=== PATIENT | male | born 1940 | race Caucasian/White ===

== ENCOUNTER 2016-07-12 12:20 | Observation (INO) | payer OTHER ==
[~2016-07-12] VITALS: Ht 182.9 cm; Wt 113.0 kg
--- NOTE | 2016-07-12 13:29 | DIAGNOSTIC IMAGING REPORT ---
PROCEDURE: XR CHEST 2 VIEW INDICATION: FEVER TECHNIQUE: PA and lateral views. COMPARISON: None. FINDINGS: Left lower lobe infiltrate. Right upper lobe infiltrate. IMPRESSION: 1. Left lower lobe and right upper lobe infiltrates.
--- NOTE | 2016-07-12 14:12 | ED ORDER SUMMARY ---
..... Patient: MARIBEL OQUENDO OrderSheet [facility] VisitID: [id number] [address] [place] [address] 75y, M Registration Date/Time: 07/12/2016 ORDER SHEET Weight: 117.9 kg (stated) Allergies: None GENERAL ORDERS: Blood Culture (No) (N/A) Urgent (12:56 07/12/2016 Callie GRAVES) (Ack 13:01 Karlee) (13:22 SRoberts R.N.) Head Holder (Continuous) (12:56 07/12/2016 Callie GRAVES) (13:21 SRoberts R.N.) Chest 2V Urgent (12:56 07/12/2016 Callie GRAVES) (Ack 13:01 Karlee) (13:22 SRoberts R.N.) UA-Culture if indicated Urgent (12:57 07/12/2016 Callie GRAVES) (Ack 13:01 Karlee) (13:21 SRoberts R.N.) Cardiac Panel Stat (12:57 07/12/2016 Callie GRAVES) (Ack 13:01 Karlee) (13:21 SRoberts R.N.) BNP Urgent (12:57 07/12/2016 Callie GRAVES) (Ack 13:01 Karlee) (13:22 SRoberts R.N.) TSH Urgent (12:57 07/12/2016 Callie GRAVES) (Ack 13:01 Karlee) (13:22 SRoberts R.N.) Lactate, Serum Urgent (12:57 07/12/2016 Calile GRAVES) (Ack 13:01 Karlee) (16:42 SRoberts R.N.) PCT (Procalcitonin) Urgent (12:57 07/12/2016 Callie GRAVES) (Ack 13:01 Karlee) (16:42 SRoberts R.N.) Pulse oximeter (12:57 07/12/2016 Callie GRAVES) (13:21 SRoberts R.N.) Oxygen (2 L/min) (NC) (12:57 07/12/2016 Callie GRAVES) (13:21 SRgeots R.N.) EKG - ER Stat (14:11 07/12/2016 Callie GRAVES) (14:22 LTapper) MEDICATION ORDERS: Ibuprofen PO 800 mg (NOW) (14:07 07/12/2016 Callie GRAVES) (Ack 14:09 Jacinto R.N.) (14:20 Jacinto R.N.) IV FLUIDS: IV Saline Lock (12:45 07/12/2016 oberts R.N. per protocol) (12:46 SRoberts R.N.) IV NS : initial bolus 500 mL (1000 mL/hr), then 250 mL/hr for 4h (NOW); Routine (12:56 07/12/2016 Callie GRAVES) (Ack 14:09 Jacinto R.N.) (16:15 SRoberts R.N.) Levofloxacin IV 750 mg/150 mL (after urine collected. ) (Sched once for X1); Routine (Sched once for X1) (12:57 07/12/2016 Callie GRAVES) (Ack 14:09 Jacinto R.N.) (16:20 SRoberts R.N.) ORDER SHEET NOTES: [Electronically signed by Larissa Arora R.N. (17:09 07/12/2016)] [Electronically signed by Sudhir Ni MD (19:45 07/12/2016)] [Electronically locked/signed by Larissa Arora R.N. (17:09 07/12/2016)]
--- NOTE | 2016-07-12 14:12 | ED CLINICAL REPORT ---
Clinical Report - Physicians/Mid Levels [facility] [address] [place] [address] 07/12/2016 12:24 Patient: MARIBEL OQUENDO Time Seen: 12:46 Jul 12 2016. Arrived- By private vehicle. Historian- patient. CPT: ER phys charges level 5 plus (#[id number]). EKG interpretation (#[id number]). HISTORY OF PRESENT ILLNESS Chief Complaint: WEAKNESS. ( fever and chills.). Severity described as moderate at its maximum. When seen in the E.D., severity described as moderate. Modifying factors- relieved by nothing. Not worsened by anything. Described as feeling light-headed, faint and weak all over. This started just prior to arrival today and is still present. No nausea, vomiting or hearing loss. Similar symptoms previously: As bad. Diagnosis: (Pneumonia, UTI). Recent medical care: Not recently seen/assessed. REVIEW OF SYSTEMS No headache, double vision, fainting episodes, head injury or chest pain. No palpitations, black stools, bloody stools, sore throat or cough. No difficulty breathing, abdominal pain, diarrhea, difficulty with urination or skin rash. No enlarged lymph nodes. The patient has had fever, chills and weakness. He has had difficulty walking. All systems otherwise negative, except as recorded above. PAST HISTORY ( Hypertension. Back Pain. Pneumonia 5 times UTI once. ADDITIONAL SURGERIES: Hip Surgery.). Medications: Furosemide Oral. Metoprolol Tartrate Oral. Allergies: None. SOCIAL HISTORY Former smoker. History of drug use: marijuana. ADDITIONAL NOTES The nursing notes have been reviewed. PHYSICAL EXAM Vital Signs: 07/12/2016 12:29 BP: 168/78. HR: 89. RR: 21. O2 saturation: 94%. Temp: 102.8 F. Pain level now: 0/10. Appearance: Alert. Patient in mild distress. Eyes: Pupils equal, round and reactive to light. No nystagmus. Extraocular movements normal. ENT: Normal ENT inspection. TM's normal. Moist mucous membranes. Pharynx normal. Neck: Normal inspection. Neck supple. CVS: Normal heart rate and rhythm. Heart sounds normal. Pulses normal. Respiratory: No respiratory distress. Breath sounds normal. Abdomen: Soft and nontender. Back: Normal inspection. Skin: Skin warm. No rash. Diaphoresis. Extremities: Extremities exhibit normal ROM. No lower extremity edema. Neuro: Alert. Oriented X 3. Mood/affect normal. Speech normal. Cranial nerves normal (as tested). No cerebellar findings. No motor deficit. No sensory deficit. Reflexes normal. LABS, X-RAYS, AND EKG EKG: Normal sinus rhythm. Normal P waves. Normal NIA. Non-specific ST segment / T wave abnormalities. Prior EKG unavailable. The study has been interpreted contemporaneously. The study has been independently viewed by me. The EKG appears to be a good tracing. Chest X-ray: Infiltrate in the right upper lobe and left lower lobe. Consistent with pneumonia. Views: PA and lateral. Technique: good. The X-rays were independently viewed by me and interpreted by the radiologist. Laboratory Tests: UA-Culture if indicated: (KENA: 07/12/2016 13:05) ( [facility] 07/12/2016 13:48) Final results Test Result Flag Units (Reference) URINE COLOR YELLOW URINE APPEARANCE CLEAR URINE GLUCOSE NEGATIVE (NEGATIVE) URINE BILIRUBIN NEGATIVE (NEGATIVE) URINE KETONE NEGATIVE (NEGATIVE) URINE SPECIFIC GRAVITY 1.015 (1.010-1.030) URINE PH 5.5 (5.0-8.0) URINE PROTEIN NEGATIVE (NEGATIVE) URINE UROBILINOGEN 0.2 EU/dL (0.2-1.0) URINE NITRITE NEGATIVE (NEGATIVE) URINE BLOOD 1+ (NEGATIVE) URINE LEUK ESTERASE NEGATIVE (NEGATIVE) URINE RBC 0-1 rbc/hpf (0-1) URINE WBC RARE wbc/hpf (0-1) URINE EPITHELIAL CELLS RARE EPI/hpf (0-5) URINE BACTERIA NONE SEEN (NONE SEEN) URINE COMMENT CULT NOT INDICATED URINE CULTURES ARE SET-UP BASED ON THE FOLLOWING CRITERIA:POSITIVE NITRITEPOSITIVE LEUKOCYTE ESTERASEGREATER THAN 10 WHITE BLOOD CELLSMODERATE (2+) OR GREATER BACTERIA CBC w Diff: (KENA: 07/12/2016 12:45) ( [facility] 07/12/2016 13:13) Final results Test Result Flag Units (Reference) WHITE BLOOD COUNT 16.2 H K/uL (4.5-11.5) RED BLOOD COUNT 5.18 M/uL (4.50-5.90) HEMOGLOBIN 15.7 gm/dL (13.5-17.5) HEMATOCRIT 46.4 % (41.0-53.0) MEAN CELL VOLUME 90 fL (80-100) MEAN CORPUSCULAR HGB 30 pg (26-34) MEAN CORPUSCULAR HGB CONC 34 g/dL (31-37) RED CELL DISTRIBUTION WIDTH 13.2 % (11.6-14.8) PLATELET COUNT 196 K/uL (150-400) NEUTROPHIL % 90.5 H % (50-75) LYMPH % 4.6 L % (25-40) MONO % 3.8 % (3-14) EOSINOPHIL % 0.6 % (0-4) BASOPHIL % 0.5 % (0-2) BNP: (KENA: 07/12/2016 12:45) ( [facility] 07/12/2016 13:43) Final results Test Result Flag Units (Reference) B-TYPE NATRIURETIC PEPTIDE 138 H pg/ml (5-100) Lactate, Serum: (KENA: 07/12/2016 13:22) ( [facility] 07/12/2016 14:02) Final results Test Result Flag Units (Reference) LACTIC ACID 2.3 H mmol/L (0.4-2.0) CHEM 13 PANEL: (KENA: 07/12/2016 12:45) ( [facility] 07/12/2016 13:44) Final results Test Result Flag Units (Reference) GLUCOSE 140 H mg/dL (70-110) BUN 16 mg/dL (7-18) CREATININE 1.3 mg/dL (0.6-1.3) Estimated GFR 57.51 mL/min Estimated GFR- >60 mL/min Note: Persistent reduction over 3 months in eGFR<60 mL/min/1.73 m2 defines CKD. Patients with eGFR values>=60 mL/min/1.73 m2 may also have CKD if evidence ofpersistent proteinuria. Additional information may be foundat www.kidney.org. SODIUM 139 mmol/L (136-145) POTASSIUM 3.8 mmol/L (3.5-5.1) CHLORIDE 100 mmol/L (98-107) CARBON DIOXIDE 28 mmol/L (21-32) CALCIUM 9.1 mg/dL (8.5-10.1) TOTAL PROTEIN 8.6 H g/dL (6.4-8.2) ALBUMIN 4.2 g/dL (3.3-5.0) BILIRUBIN, TOTAL 1.1 H mg/dL (0.0-1.0) ALKALINE PHOSPHATASE 68 U/L (46-116) AST (SGOT) 82 H U/L (15-37) ALT (SGPT) 149 H U/L (12-78) CPK 89 U/L (24-260) MAGNESIUM 1.8 mg/dL (1.8-2.4) TROPONIN I <0.05 ng/mL (0.00-1.5) TROPONIN REFERENCE RANGE:<0.1 NEGATIVE0.1-1.5 INDETERMINANT>1.5 POSITIVE THYROID STIMULATING HORMONE 1.260 uIU/mL (0.30-3.74) . PROGRESS AND PROCEDURES Course of Care: BC IV NS Levaquin 750 mg IV Ibuprofen 800 mg po Patient is stable. Symptoms better. Discussed case with on-call health care provider, (Braxton). Reviewed test results. Agreed upon treatment plan. Health care provider will see patient in ED. Patient/family counseled. Old medical records ordered. Disposition orders written. Disposition: Admitted to Acute Care. CLINICAL IMPRESSION Bacterial bronchopneumonia. Vital signs recorded and reviewed; empiric antibiotics given in the ED. Acute generalized weakness. Increased lactic acid Elevated LFT's. (Electronically signed by Sudhir Ni MD 07/12/2016 19:45)
--- NOTE | 2016-07-12 14:12 | ED ORDER SUMMARY ---
..... Patient: MARIBEL OQUENDO OrderSheet [facility] VisitID: [id number] [address] [place] [address] 75y, M Registration Date/Time: 07/12/2016 ORDER SHEET Weight: 117.9 kg (stated) Allergies: None GENERAL ORDERS: Blood Culture (No) (N/A) Urgent (12:56 07/12/2016 Callie GRAVES) (Ack 13:01 Karlee) (13:22 SRoberts R.N.) Vocational Education Professional (Continuous) (12:56 07/12/2016 Callie GRAVES) (13:21 SRoberts R.N.) Chest 2V Urgent (12:56 07/12/2016 Callie GRAVES) (Ack 13:01 Karlee) (13:22 SRoberts R.N.) UA-Culture if indicated Urgent (12:57 07/12/2016 Callie GRAVES) (Ack 13:01 Karlee) (13:21 SRoberts R.N.) Cardiac Panel Stat (12:57 07/12/2016 Callie GRAVES) (Ack 13:01 Karlee) (13:21 SRoberts R.N.) BNP Urgent (12:57 07/12/2016 Callie GRAVES) (Ack 13:01 Karlee) (13:22 SRoberts R.N.) TSH Urgent (12:57 07/12/2016 Callie GRAVES) (Ack 13:01 Karlee) (13:22 SRoberts R.N.) Lactate, Serum Urgent (12:57 07/12/2016 Callie GRAVES) (Ack 13:01 Karlee) (16:42 SRoberts R.N.) PCT (Procalcitonin) Urgent (12:57 07/12/2016 Callie GRAVES) (Ack 13:01 Karlee) (16:42 SRoberts R.N.) Pulse oximeter (12:57 07/12/2016 Callie GRAVES) (13:21 SRoberts R.N.) Oxygen (2 L/min) (NC) (12:57 07/12/2016 Callie GRAVES) (13:21 SRgeots R.N.) EKG - ER Stat (14:11 07/12/2016 Callie GRAVES) (14:22 LTapper) MEDICATION ORDERS: Ibuprofen PO 800 mg (NOW) (14:07 07/12/2016 Callie GRAVES) (Ack 14:09 Jacinto R.N.) (14:20 Jacinto R.N.) IV FLUIDS: IV Saline Lock (12:45 07/12/2016 oberts R.N. per protocol) (12:46 SRoberts R.N.) IV NS : initial bolus 500 mL (1000 mL/hr), then 250 mL/hr for 4h (NOW); Routine (12:56 07/12/2016 Callie GRAVES) (Ack 14:09 Jacinto R.N.) (16:15 SRoberts R.N.) Levofloxacin IV 750 mg/150 mL (after urine collected. ) (Sched once for X1); Routine (Sched once for X1) (12:57 07/12/2016 Callie GRAVES) (Ack 14:09 Jacinto R.N.) (16:20 SRoberts R.N.) ORDER SHEET NOTES: [Electronically signed by Larissa Arora R.N. (17:09 07/12/2016)] [Electronically signed by Sudhir Ni MD (19:45 07/12/2016)] [Electronically locked/signed by Larissa Arora R.N. (17:09 07/12/2016)]
--- NOTE | 2016-07-12 14:12 | ED CLINICAL REPORT ---
Clinical Report - Physicians/Mid Levels [facility] [address] [place] [address] 07/12/2016 12:24 Patient: MARIBEL OQUENDO Time Seen: 12:46 Jul 12 2016. Arrived- By private vehicle. Historian- patient. CPT: ER phys charges level 5 plus (#[id number]). EKG interpretation (#[id number]). HISTORY OF PRESENT ILLNESS Chief Complaint: WEAKNESS. ( fever and chills.). Severity described as moderate at its maximum. When seen in the E.D., severity described as moderate. Modifying factors- relieved by nothing. Not worsened by anything. Described as feeling light-headed, faint and weak all over. This started just prior to arrival today and is still present. No nausea, vomiting or hearing loss. Similar symptoms previously: As bad. Diagnosis: (Pneumonia, UTI). Recent medical care: Not recently seen/assessed. REVIEW OF SYSTEMS No headache, double vision, fainting episodes, head injury or chest pain. No palpitations, black stools, bloody stools, sore throat or cough. No difficulty breathing, abdominal pain, diarrhea, difficulty with urination or skin rash. No enlarged lymph nodes. The patient has had fever, chills and weakness. He has had difficulty walking. All systems otherwise negative, except as recorded above. PAST HISTORY ( Hypertension. Back Pain. Pneumonia 5 times UTI once. ADDITIONAL SURGERIES: Hip Surgery.). Medications: Furosemide Oral. Metoprolol Tartrate Oral. Allergies: None. SOCIAL HISTORY Former smoker. History of drug use: marijuana. ADDITIONAL NOTES The nursing notes have been reviewed. PHYSICAL EXAM Vital Signs: 07/12/2016 12:29 BP: 168/78. HR: 89. RR: 21. O2 saturation: 94%. Temp: 102.8 F. Pain level now: 0/10. Appearance: Alert. Patient in mild distress. Eyes: Pupils equal, round and reactive to light. No nystagmus. Extraocular movements normal. ENT: Normal ENT inspection. TM's normal. Moist mucous membranes. Pharynx normal. Neck: Normal inspection. Neck supple. CVS: Normal heart rate and rhythm. Heart sounds normal. Pulses normal. Respiratory: No respiratory distress. Breath sounds normal. Abdomen: Soft and nontender. Back: Normal inspection. Skin: Skin warm. No rash. Diaphoresis. Extremities: Extremities exhibit normal ROM. No lower extremity edema. Neuro: Alert. Oriented X 3. Mood/affect normal. Speech normal. Cranial nerves normal (as tested). No cerebellar findings. No motor deficit. No sensory deficit. Reflexes normal. LABS, X-RAYS, AND EKG EKG: Normal sinus rhythm. Normal P waves. Normal NIA. Non-specific ST segment / T wave abnormalities. Prior EKG unavailable. The study has been interpreted contemporaneously. The study has been independently viewed by me. The EKG appears to be a good tracing. Chest X-ray: Infiltrate in the right upper lobe and left lower lobe. Consistent with pneumonia. Views: PA and lateral. Technique: good. The X-rays were independently viewed by me and interpreted by the radiologist. Laboratory Tests: UA-Culture if indicated: (KENA: 07/12/2016 13:05) ( [facility] 07/12/2016 13:48) Final results Test Result Flag Units (Reference) URINE COLOR YELLOW URINE APPEARANCE CLEAR URINE GLUCOSE NEGATIVE (NEGATIVE) URINE BILIRUBIN NEGATIVE (NEGATIVE) URINE KETONE NEGATIVE (NEGATIVE) URINE SPECIFIC GRAVITY 1.015 (1.010-1.030) URINE PH 5.5 (5.0-8.0) URINE PROTEIN NEGATIVE (NEGATIVE) URINE UROBILINOGEN 0.2 EU/dL (0.2-1.0) URINE NITRITE NEGATIVE (NEGATIVE) URINE BLOOD 1+ (NEGATIVE) URINE LEUK ESTERASE NEGATIVE (NEGATIVE) URINE RBC 0-1 rbc/hpf (0-1) URINE WBC RARE wbc/hpf (0-1) URINE EPITHELIAL CELLS RARE EPI/hpf (0-5) URINE BACTERIA NONE SEEN (NONE SEEN) URINE COMMENT CULT NOT INDICATED URINE CULTURES ARE SET-UP BASED ON THE FOLLOWING CRITERIA:POSITIVE NITRITEPOSITIVE LEUKOCYTE ESTERASEGREATER THAN 10 WHITE BLOOD CELLSMODERATE (2+) OR GREATER BACTERIA CBC w Diff: (KENA: 07/12/2016 12:45) ( [facility] 07/12/2016 13:13) Final results Test Result Flag Units (Reference) WHITE BLOOD COUNT 16.2 H K/uL (4.5-11.5) RED BLOOD COUNT 5.18 M/uL (4.50-5.90) HEMOGLOBIN 15.7 gm/dL (13.5-17.5) HEMATOCRIT 46.4 % (41.0-53.0) MEAN CELL VOLUME 90 fL (80-100) MEAN CORPUSCULAR HGB 30 pg (26-34) MEAN CORPUSCULAR HGB CONC 34 g/dL (31-37) RED CELL DISTRIBUTION WIDTH 13.2 % (11.6-14.8) PLATELET COUNT 196 K/uL (150-400) NEUTROPHIL % 90.5 H % (50-75) LYMPH % 4.6 L % (25-40) MONO % 3.8 % (3-14) EOSINOPHIL % 0.6 % (0-4) BASOPHIL % 0.5 % (0-2) BNP: (KENA: 07/12/2016 12:45) ( [facility] 07/12/2016 13:43) Final results Test Result Flag Units (Reference) B-TYPE NATRIURETIC PEPTIDE 138 H pg/ml (5-100) Lactate, Serum: (KENA: 07/12/2016 13:22) ( [facility] 07/12/2016 14:02) Final results Test Result Flag Units (Reference) LACTIC ACID 2.3 H mmol/L (0.4-2.0) CHEM 13 PANEL: (KENA: 07/12/2016 12:45) ( [facility] 07/12/2016 13:44) Final results Test Result Flag Units (Reference) GLUCOSE 140 H mg/dL (70-110) BUN 16 mg/dL (7-18) CREATININE 1.3 mg/dL (0.6-1.3) Estimated GFR 57.51 mL/min Estimated GFR- >60 mL/min Note: Persistent reduction over 3 months in eGFR<60 mL/min/1.73 m2 defines CKD. Patients with eGFR values>=60 mL/min/1.73 m2 may also have CKD if evidence ofpersistent proteinuria. Additional information may be foundat www.kidney.org. SODIUM 139 mmol/L (136-145) POTASSIUM 3.8 mmol/L (3.5-5.1) CHLORIDE 100 mmol/L (98-107) CARBON DIOXIDE 28 mmol/L (21-32) CALCIUM 9.1 mg/dL (8.5-10.1) TOTAL PROTEIN 8.6 H g/dL (6.4-8.2) ALBUMIN 4.2 g/dL (3.3-5.0) BILIRUBIN, TOTAL 1.1 H mg/dL (0.0-1.0) ALKALINE PHOSPHATASE 68 U/L (46-116) AST (SGOT) 82 H U/L (15-37) ALT (SGPT) 149 H U/L (12-78) CPK 89 U/L (24-260) MAGNESIUM 1.8 mg/dL (1.8-2.4) TROPONIN I <0.05 ng/mL (0.00-1.5) TROPONIN REFERENCE RANGE:<0.1 NEGATIVE0.1-1.5 INDETERMINANT>1.5 POSITIVE THYROID STIMULATING HORMONE 1.260 uIU/mL (0.30-3.74) . PROGRESS AND PROCEDURES Course of Care: BC IV NS Levaquin 750 mg IV Ibuprofen 800 mg po Patient is stable. Symptoms better. Discussed case with on-call health care provider, (Braxton). Reviewed test results. Agreed upon treatment plan. Health care provider will see patient in ED. Patient/family counseled. Old medical records ordered. Disposition orders written. Disposition: Admitted to Acute Care. CLINICAL IMPRESSION Bacterial bronchopneumonia. Vital signs recorded and reviewed; empiric antibiotics given in the ED. Acute generalized weakness. Increased lactic acid Elevated LFT's. (Electronically signed by Sudhir Ni MD 07/12/2016 19:45)
--- NOTE | 2016-07-12 14:12 | ED NURSING NOTES ---
Clinical Report - Nurses [facility] [address] [place] [address] 07/12/2016 12:24 Patient: MARIBEL OQUENDO TRIAGE Triage time 12:30 Jul 12 2016. Acuity: LEVEL 2. Chief Complaint: CHILLS, FATIGUE and WEAKNESS. SEPSIS SCREEN: Sepsis Screen: positive. Infection suspected/documented. Temperature greater than 38.3 degrees C (101 degrees F) and respiratory rate greater than 20. Physician notified. --12:44 Larissa Arora R.N. 12:29 07/12/16. BP: 168/78. HR: 89. RR: 21 (regular and unlabored). O2 saturation: 94%. Temp: 102.8 F. Pain level now: 0/10. Additional comments: pt denies pain r/t visit, does report chronic low left back pain. --12:44 Larissa Arora R.N. Weight: 117.9 kg stated. Height/Length: 72 inches Per Patient. BMI: 35.3. --17:08 Larissa Arora R.N. Medications Furosemide Oral. Metoprolol Tartrate Oral. --12:34 Larissa Arora R.N. Allergies None. --12:34 Larissa Arora R.N. History Arrived by private vehicle. Historian: patient and family. Accompanied by family and son. This started just prior to arrival. Onset. 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 He has had fever and weakness. PAST MEDICAL HX: Immunizations: up-to-date. SURGERY HX: Right hip surgery. SOCIAL HX: Former smoker, end date 02/2015 (cigarette). Occasional alcohol use; consumes one beer a week. History of drug use. (recently used cbd oil for pain). NUTRITIONAL RISK ASSESSMENT: The nutritional risk assessment revealed no deficiencies. FUNCTIONAL ASSESSMENT: Functional assessment: no impairments noted. LEARNING NEEDS ASSESSMENT: The learning needs assessment revealed no barriers. SKIN INTEGRITY ASSESSMENT: Skin integrity risk assessment completed. No skin integrity risk identified. --12:44 Larissa Arora R.N. FALL RISK ASSESSMENT: Fall risk assessment completed. Risk factors identified include patient age greater than 65 years, history of fall and impairment of mobility. Fall interventions initiated. Patient placed in wheelchair. Side rails up x2. Brakes on Bed in low position. Patient identified as a fall risk by ID band. Family at bedside. Call light in reach of patient. Instructed not to get up without assistance. --12:48 Larissa Arora R.N. PROBLEMS: Hypertension. --12:35 Larissa Arora R.N. Back Pain. --12:44 Larissa Arora R.N. ADDITIONAL SURGERIES: Hip Surgery. --12:35 Larissa Arora R.N. Interventions ID and allergy band on patient. ID band checked. SEPSIS protocol initiated at triage. To treatment room. --12:44 Larissa Arora R.N. PHYSICAL ASSESSMENT GENERAL / NEURO / PSYCH: Alert. Oriented X 4. Appears anxious. He has had weakness. HEENT: Pupils equal, round and reactive to light. RESPIRATORY: Respirations not labored. The patient can speak in full sentences. GI / : Abdomen soft. SKIN: Skin intact. Skin is warm. Normal skin turgor. ( oral mucosa dry). --12:51 Larissa Arora R.N. NURSING PROGRESS NOTES 12:41 07/12/2016 Site #1 started via IV in the left antecubital space with an 20g angiocath; one attempt. Blood drawn: rainbow set and cultures x1. Sent to the lab. Saline lock flushed. --12:46 Larissa Arora R.N. 12:51. Oxygen administered. Monitoring of patient in place. Patient gowned. Head of bed elevated. Two patient identifiers checked. Call light placed in reach. Side rails up x 2. Bed placed in lowest position. Brakes of bed on. Patient ready for evaluation- chart flagged. --13:42 Larissa Arora R.N. Patient returned from radiology by stretcher with tech. ([id number]). --13:43 Larissa Arora R.N. 14:20 07/12/2016 Ibuprofen PO Tablets 800 mg given. Allergies verified and confirmed 5 rights. --14:20 Betsy Moya R.N. 14:24 03/16/17. Cardiac rhythm: normal sinus rhythm. Reassessment after fluids administered. He reports no complaints and he is calm and resting quietly. Overall patient status is the same. ( pt reported needing to void, unable to stand, provided urinal at bedside, pt diaphoretic, temp has dec since ivf up, pt in SR, no ectopy noted, family at bedside, call light in hand. pt took oral meds without difficulty,.). SKIN: Skin is diaphoretic. --14:24 Betsy Moya R.N. 14:20 07/12/16. BP: 144/81. HR: 83. RR: 17. O2 saturation: 94%. Temp: 98.4 F. Pain level now: 0/10. ED physician notified. --14:24 Betsy Moya R.N. EKG was performed by a tech and shown to the ED physician. --14:31 Delmis Lynch ( At patient's bedside, brought him water and a pillow as per patient's request and Shanti vickers.). --15:42 Delmis Lynch 13:01 07/12/2016 Started 750 mg of Levofloxacin IVPB in bag #1 150 mL; at 100 mL/hr over 90 minute(s) via site #1 via IV pump. Allergies verified and confirmed 5 rights. IV patency established. IV site checked: no pain, redness, or swelling. IV flushed thoroughly pre- and post-medication administration. --16:20 Larissa Arora R.N. 13:03 07/12/2016 Started bag #1 1000 mL IV Fluids IV NS (Saline); bolus of 500 mL over 30 minute(s) then at 1000 mL/hr over 30 minute(s) via site #1 via IV pump. Allergies verified and confirmed 5 rights. IV patency established. IV site checked: no pain, redness, or swelling. IV flushed thoroughly pre- and post-medication administration. --16:15 Larissa Arora R.N. 13:30 07/12/2016 IV Fluids IV NS via IV site #1 Rate Changed: bag #1 decreased to 250 mL/hr via IV pump. Confirmed 5 Rights. --16:16 Larissa Arora R.N. 14:30 07/12/2016 Levofloxacin IVPB Discontinued: bag #1 infused. Total amount infused: 150 mL. IV patency established. IV site checked: no pain, redness, or swelling. IV flushed thoroughly. --16:21 Larissa Arora R.N. 15:16 07/12/2016 IV Fluids IV NS Bag Change: bag #1 infused. Total amount infused: 1000. STARTED bag #2 (250 mL) at 250 mL/hr via IV pump. Confirmed 5 rights. --16:18 Larissa Arora R.N. 16:42 07/12/2016 IV Fluids IV NS Continued: upon admission at the rate of 250 mL/hr. 700 mL remaining bag #2. IV patency established. IV site checked: no pain, redness, or swelling. IV flushed thoroughly. --16:42 Larissa Arora R.N. 16:43 07/12/2016 Site #[address] upon admission; patent, no pain and no signs of infection or infiltration. Good blood return present; flushes easily. --16:43 Larissa Arora R.N. DISPOSITION / DISCHARGE Disposition: observation in Acute Care. Transported via stretcher by [employer] with IV. Report was given to a nurse via a phone call. Report included patient's care, treatment, medications, reviewed medication reconcilliation, and condition (including any recent changes or anticipated changes). All questions were answered. Report was acknowledged and care was transferred. (Gerri LAMB). Patient's personal items include: shirt, pants, undergarments, coat, socks, shoes, glasses and cell phone; items were placed in belongings bag and transported with the patient. Collection of belongings was witnessed by 1 nurse. --16:42 Larissa Arora R.N. 16:10 07/12/16. BP: 104/64. HR: 79. RR: 18. O2 saturation: 94% on room air. Pain level now: 3/10. 15:00 07/12/16. BP: 112/56. HR: 73. RR: 18. O2 saturation: 94% on room air. Temp: 99.3 F. 14:20 07/12/16. BP: 144/81. HR: 83. RR: 17. O2 saturation: 94%. Temp: 98.4 F. Pain level now: 0/10. ED physician notified. 12:29 07/12/16. BP: 168/78. HR: 89. RR: 21 (regular and unlabored). O2 saturation: 94%. Temp: 102.8 F. Pain level now: 0/10. Additional comments: pt denies pain r/t visit, does report chronic low left back pain. --16:42 Larissa Arora R.N. Departure time: 1700. --17:07 Larissa Arora R.N. Locked/Released at 07/12/2016 17:09 by Larissa Arora R.N.
--- NOTE | 2016-07-12 15:29 | History & Physical Report ---
Information Source Information Source: Self Reliability: Good History Chief Complaint fever and diaphoresis History of Present Illness Patient is a 75 year old male with a pmh of hypertension that is presenting with a one day history of fever and diaphoresis. Patient had been in his usual state of health until this morning when the patient had a sudden onset of diaphoresis and general malaise. Patient claims that there was no inciting incidence nor was there any preceding sore throat, cough, or rhinitis. Patient has had two family members that were recently ill, one with a sinus infection and one with an upper respiratory infection. Patient is otherwise stable with no other problems noted. Patient History 1. Pneumonia 2. Hypertension Social History Patient lives at home with his two sons. He is currently retired. Patient has quit smoking one year back and before he was smoking close to 1/2 pack a day for close to 40 years. Patient drinks socially and does not use any illicit substances. Family History Family history was reviewed; no changes noted. Medications and Allergies Medications Home Medications Metoprolol 25 mg bid Lasix 40 mg daily Current Medications Sig/Wu Start time Last Medication Dose Route Stop Time Status Admin Azithromycin 500 MG DAILY 07/13 0900 UNV Sodium Chloride 250 ML IV Ceftriaxone Sodium/ 50 ML DAILY 07/13 0900 UNV Dextrose IV Enoxaparin Sodium 40 MG QAM 07/13 0900 AC SC Furosemide 20 MG DAILY 07/13 0900 AC PO Metoprolol Tartrate 25 MG BID 07/12 2100 AC PO Acetaminophen 650 MG Q6H PRN 07/12 1530 AC PO Sodium Chloride 1,000 ML ASDIRECTED 07/12 1530 AC IV Allergies Coded Allergies: NKA (07/12/16) Review of Systems Constitutional Fever, Chills, Sweats, Malaise. Denies: Weakness, Other. Eyes Denies: Pain, Vision Change, Conjunctival Inflammation, Eyelid Inflammation, Redness, Other. ENT Denies: Ear Pain, Ear Discharge, Nose Pain, Nasal Discharge, Nasal Congestion, Mouth Pain, Mouth Swelling, Throat Pain, Throat Swelling, Other. Respiratory SOB w/exertion. Denies: Cough, Dry, Wheezing, Hemoptysis, Pleuritic Pain, Sputum, Other. Cardiovascular Denies: Chest Pain, Palpitations, Orthopnea, PND, Edema, Light-headedness, Other. Gastrointestinal Denies: Nausea, Vomiting, Abdominal Pain, Diarrhea, Constipation, Melena, Hematochezia, Other. Genitourinary Denies: Dysuria, Frequency, Incontinence, Hematuria, Retention, Other. Musculoskeletal Denies: Neck Pain, Shoulder Pain, Arm Pain, Back Pain, Hand Pain, Leg Pain, Foot Pain, Other. Skin Denies: Rash, Lesions, Jaundice, Bruising, Other. Neurological Denies: Weakness, Numbness, Incoordination, Change in speech, Confusion, Seizures, Other. Physical Exam General Appearance Alert, Oriented X3, No acute distress HEENT PERRLA, EOMI, Moist mucous membranes Lungs Normal air movement, - left lower lobe ronchi Neck No JVD, No masses, No thyromegaly, No lymphadenopathy, 2+ carotid pulse wo bruit Cardiovascular Regular rate and rhythm, Normal S1 and S2, No murmurs, gallops, rubs Abdomen Soft, No tenderness, No guarding, No hepatosplenomegaly Extremities No cyanosis, No clubbing, No edema, Normal pulses, No tenderness, Strength = upper ext's, Strength = lower ext's Skin No Breakdown, No Significant Lesions Neurological Normal speech, Normal tone, Sensation intact, Cranial nerves intact , Strength 5/5 x4 ext's, No lateralizing signs Psych/Mental Status Mental status normal LAB Results Laboratory Tests 07/12 07/12 07/12 07/12 1245 1245 1245 1257 Chemistry Plasma Sodium (136 - 145 mmol/L) 139 Plasma Potassium (3.5 - 5.1 mmol/L) 3.8 Plasma Chloride (98 - 107 mmol/L) 100 CO2 (Enzymatic) (21 - 32 mmol/L) 28 BUN (7 - 18 mg/dL) 16 Creatinine (0.6 - 1.3 mg/dL) 1.3 Est GFR ( Amer) (mL/min) >60 Est GFR (Non-Af Amer) (mL/min) 57.51 Glucose (70 - 110 mg/dL) 140 Plasma Calcium (8.5 - 10.1 mg/dL) 9.1 Plasma Magnesium (1.8 - 2.4 mg/dL) 1.8 Total Bilirubin (0.0 - 1.0 mg/dL) 1.1 AST (15 - 37 U/L) 82 ALT (12 - 78 U/L) 149 Alkaline Phosphatase (46 - 116 U/L) 68 Creatine Kinase (24 - 260 U/L) 89 Troponin (0.00 - 1.5 ng/mL) <0.05 B-Natriuretic Peptide (5 - 100 pg/ml) 138 Total Protein (6.4 - 8.2 g/dL) 8.6 Albumin (3.3 - 5.0 g/dL) 4.2 Procalcitonin (0 - 0.5 ng/mL) <0.5 TSH 3rd Generation (0.30 - 3.74 uIU/mL) 1.260 Cancelled Hematology WBC (4.5 - 11.5 K/uL) 16.2 RBC (4.50 - 5.90 M/uL) 5.18 Hgb (13.5 - 17.5 gm/dL) 15.7 Hct (41.0 - 53.0 %) 46.4 MCV (80 - 100 fL) 90 MCH (26 - 34 pg) 30 RDW (11.6 - 14.8 %) 13.2 Neut % (Auto) (50 - 75 %) 90.5 Lymph % (Auto) (25 - 40 %) 4.6 [place] % (Auto) (3 - 14 %) 3.8 Eos % (Auto) (0 - 4 %) 0.6 Baso % (Auto) (0 - 2 %) 0.5 Plt Count, EDTA (150 - 400 K/uL) 196 PUBS MCHC (31 - 37 g/dL) 34 07/12 07/12 1305 1322 Chemistry Lactic Acid (0.4 - 2.0 mmol/L) 2.3 Urines Urine Color YELLOW Urine Appearance CLEAR Urine pH (5.0 - 8.0) 5.5 Ur Specific [place] (1.010 - 1.030) 1.015 Urine Protein (NEGATIVE) NEGATIVE Urine Ketones (NEGATIVE) NEGATIVE Urine Blood (NEGATIVE) 1+ Urine Nitrite (NEGATIVE) NEGATIVE Urine Bilirubin (NEGATIVE) NEGATIVE Urine Urobilinogen (0.2 - 1.0 EU/dL) 0.2 Ur Leukocyte Esterase (NEGATIVE) NEGATIVE Urine RBC (0 - 1 rbc/hpf) 0-1 Urine WBC (0 - 1 wbc/hpf) RARE Ur Epithelial Cells (0 - 5 EPI/hpf) RARE Urine Bacteria (NONE SEEN) NONE SEEN Urine Glucose (NEGATIVE) NEGATIVE Urine Comment CULT NOT INDICATED Microbiology Date/Time Procedure - Status Source Growth 07/12 1245 Blood Culture - RECD BLOOD Assessment and Plan Problem List 1. Pneumonia Plan - pt has a 2 day history of subjective fevers, chills and diaphoresis - pt has not had any recent illness, cough , or sick contacts - pt is currently diaphoretic, with some difficulty breathing - radiological evidence of pneumonia on chest film - pt recieved one dose of levaquin - will continue patient on ceftriaxone and azithromycin 2. Hypertension Plan - pt has an established history of hypertension - pt currently takes metoprolol and lasix - Pt additioanlly has evidence of decreased exercise tolerance - patient had a recent echocardiogram within the year to which the patient reports is "normal"
[2016-07-12 17:27] VITALS: BP 133/59
[2016-07-12] MEDS ORDERED: FUROSEMIDE20 MG PO (19:29)
[2016-07-12] MEDS ORDERED: LOPRESSOR25 MG PO (19:30)
--- NOTE | 2016-07-12 19:45 | ED MED RECONCILIATION SUMMARY ---
[facility] Medication Reconciliation Report [facility] VisitID: [id number] [address] [place] [address] 75y, M Registration Date/Time: 07/12/2016 Weight: 117.9 kg Height/Length: 72 in. BMI: 35.3 ALLERGIES: None The patient's Home Medications are listed below: THE FOLLOWING MEDICATIONS NEED TO BE RECONCILED: Furosemide Oral Metoprolol Tartrate Oral The source(s) of the original Home Medication information: Not obtained. The following Medications were given to the patient in the Emergency Department: Ibuprofen [PO] PO 800 mg, administered: 07/12/2016 2:20:00 PM IV NS IV Fluids bolus 500 mL over 30 minute(s), then 1000 mL/hr, administered: 07/12/2016 1:03:00 PM Levofloxacin [IVPB] IVPB bolus 0, then 750 mg 100 mL/hr, administered: 07/12/2016 1:01:00 PM The following Medications were prescribed to the patient: None.
--- NOTE | 2016-07-12 19:45 | ED DISCHARGE INSTRUCTIONS ---
Patient: MARIBEL OQUENDO General Instructions [facility] VisitID: [id number] [place] [address] 75y, M Registration Date/Time: 07/12/2016 Bacterial bronchopneumonia. Vital signs recorded and reviewed; empiric antibiotics given in the ED. Acute generalized weakness. Increased lactic acid Elevated LFT's. ADDITIONAL INFORMATION Pneumonia (Adult) Pneumonia is an infection deep within the lung, in the small air sacs (alveoli). It may be due to a virus or bacteria and is usually treated with an antibiotic. Severe cases require treatment in the hospital. Milder cases can be treated at home. Symptoms usually start to improve during the first2 days of treatment. Home Care: Rest at home for the first 23 days or until you feel stronger. When resuming activity, dont let yourself become overly tired. Avoid exposure to cigarette smoke (yours or others). You may use acetaminophen (Tylenol) or ibuprofen (Motrin, Advil) to control fever or pain, unless another medicine was prescribed. [NOTE: If you have chronic liver or kidney disease or ever had a stomach ulcer or GI bleeding, talk with your doctor before using these medicines.] (Aspirin should never be used in anyone under 18 years of age who is ill with a fever. It may cause severe liver damage.) Your appetite may be poor so a light diet is fine. Keep well hydrated by drinking 68 glasses of fluids per day (water, sport drinks such as Gatorade, sodas without caffeine, juices, tea, soup, etc.). This will help loosen secretions in the lung, making it easier for you to cough up the phlegm (sputum). If you also have heart or kidney disease, check with your doctor before you drink extra amounts of fluids. Finish all antibiotic medicine prescribed, even if you are feeling better after a few days. Follow Up with your doctor in the next 23 days (or as advised) to be sure you are responding properly to the medicine. [NOTE: If you are age 65 or older, or if you have chronic lung disease (asthma, emphysema or COPD), we recommendthe pneumococcal vaccination and a yearlyinfluenzavaccination(flu-shot) every . Ask your doctor about this.] Get Prompt Medical Attention if any of the following occur: Not getting better within the first 48 hours of treatment Increasing shortness of breath or rapid breathing (over 25 breaths/minute) Coughing up blood or increasing chest pain with breathing Fever of 100.4F (38C) oral or higher, not better with fever medication Increasing weakness, dizziness or fainting Increasing thirst or dry mouth Sinus pain, headache or a stiff neck Chest pain not caused by coughing You have been given the following additional information: Pneumonia (Adult) (Electronically signed by Sudhir Ni MD 07/12/2016 19:45)
--- NOTE | 2016-07-12 19:45 | ED MAR SUMMARY ---
..... Medication Administration Record [facility] [address] [place] [place] [address] Patient: MARIBEL OQUENDO Visit ID: [id number] 75y, M Weight: 117.9 kg Height/Length: 72 in BMI: 35.3 ALLERGIES: None Start 13:01 07/12/2016 Larissa Arora R.N., Stop 14:30 07/12/2016 Larissa Arora R.N. Medication Administered: LEVOFLOXACIN [IVPB], Dose: 750 mg IVPB over 90 minute(s), Rate: 100 mL/hr, Dispensed: 150 mL bag, Site: #1 left AC. Medication Ordered: Levofloxacin IV 750 mg/150 mL (after urine collected. ) (Sched once for X1); Routine. Start 13:03 07/12/2016 Larissa Arora R.N., Continued Upon Admission 16:42 07/12/2016 Larissa Arora R.N. Medication Administered: IV NS (SALINE), Dose: IV Fluids over 30 minute(s), Rate: 1000 mL/hr, Bolus: 500 mL over 30 minute(s), Dispensed: 1000 mL bag, Site: #1 left AC. Medication Ordered: IV NS : initial bolus 500 mL (1000 mL/hr), then 250 mL/hr for 4h (NOW); Routine. Given 14:20 07/12/2016 Betsy Moya R.N. Medication Administered: IBUPROFEN [PO], Dose: 800 mg Tablets PO. Medication Ordered: Ibuprofen PO 800 mg (NOW).
--- NOTE | 2016-07-12 19:45 | ED MED RECONCILIATION SUMMARY ---
[facility] Medication Reconciliation Report [facility] VisitID: [id number] [address] [place] [address] 75y, M Registration Date/Time: 07/12/2016 Weight: 117.9 kg Height/Length: 72 in. BMI: 35.3 ALLERGIES: None The patient's Home Medications are listed below: THE FOLLOWING MEDICATIONS NEED TO BE RECONCILED: Furosemide Oral Metoprolol Tartrate Oral The source(s) of the original Home Medication information: Not obtained. The following Medications were given to the patient in the Emergency Department: Ibuprofen [PO] PO 800 mg, administered: 07/12/2016 2:20:00 PM IV NS IV Fluids bolus 500 mL over 30 minute(s), then 1000 mL/hr, administered: 07/12/2016 1:03:00 PM Levofloxacin [IVPB] IVPB bolus 0, then 750 mg 100 mL/hr, administered: 07/12/2016 1:01:00 PM The following Medications were prescribed to the patient: None.
--- NOTE | 2016-07-12 19:45 | ED MAR SUMMARY ---
..... Medication Administration Record [facility] [address] [place] [place] [address] Patient: MARIBEL OQUENDO Visit ID: [id number] 75y, M Weight: 117.9 kg Height/Length: 72 in BMI: 35.3 ALLERGIES: None Start 13:01 07/12/2016 Larissa Arora R.N., Stop 14:30 07/12/2016 Larissa Arora R.N. Medication Administered: LEVOFLOXACIN [IVPB], Dose: 750 mg IVPB over 90 minute(s), Rate: 100 mL/hr, Dispensed: 150 mL bag, Site: #1 left AC. Medication Ordered: Levofloxacin IV 750 mg/150 mL (after urine collected. ) (Sched once for X1); Routine. Start 13:03 07/12/2016 Larissa Arora R.N., Continued Upon Admission 16:42 07/12/2016 Larissa Arora R.N. Medication Administered: IV NS (SALINE), Dose: IV Fluids over 30 minute(s), Rate: 1000 mL/hr, Bolus: 500 mL over 30 minute(s), Dispensed: 1000 mL bag, Site: #1 left AC. Medication Ordered: IV NS : initial bolus 500 mL (1000 mL/hr), then 250 mL/hr for 4h (NOW); Routine. Given 14:20 07/12/2016 Betsy Moya R.N. Medication Administered: IBUPROFEN [PO], Dose: 800 mg Tablets PO. Medication Ordered: Ibuprofen PO 800 mg (NOW).
[2016-07-12 22:22] VITALS: BP 100/47
[2016-07-13 02:12] VITALS: BP 128/60
[2016-07-13 06:47] VITALS: BP 133/57
[2016-07-13 10:41] VITALS: BP 119/51
[2016-07-13 14:21] VITALS: BP 145/59
--- NOTE | 2016-07-13 17:40 | Progress Note ---
Subjective General Patient seen and examined. Patient is stable, not making much improvement, patient is starting to develop a productive cough now. Patient additonally has not had any improvement in his white blood cell count. Constitutional Denies: Fever, Chills, Sweats, Weakness, Malaise, Other. Eyes Denies: Pain, Vision Change, Conjunctival Inflammation, Eyelid Inflammation, Redness, Other. ENT Denies: Ear Pain, Ear Discharge, Nose Pain, Nasal Discharge, Nasal Congestion, Mouth Pain, Mouth Swelling, Throat Pain, Throat Swelling, Other. Respiratory Cough, SOB w/exertion. Denies: Dry, Wheezing, Hemoptysis, Pleuritic Pain, Sputum, Other. Cardiovascular Denies: Chest Pain, Palpitations, Orthopnea, PND, Edema, Light-headedness, Other. Gastrointestinal Denies: Nausea, Vomiting, Abdominal Pain, Diarrhea, Constipation, Melena, Hematochezia, Other. Genitourinary Denies: Dysuria, Frequency, Incontinence, Hematuria, Retention, Other. Musculoskeletal Denies: Neck Pain, Shoulder Pain, Arm Pain, Back Pain, Hand Pain, Leg Pain, Foot Pain, Other. Skin Denies: Rash, Lesions, Jaundice, Bruising, Other. Neurological Denies: Weakness, Numbness, Incoordination, Change in speech, Confusion, Seizures, Other. Physical Exam Vital Signs / I&Os Vital Signs Date Time Temp Pulse Resp B/P Pulse O2 O2 Flow FiO2 Ox Delivery Rate 07/13 1421 97.5 55 20 145/59 96 07/13 1041 98.2 62 20 119/51 94 Room Air 07/13 0647 97.5 69 21 133/57 96 Room Air 07/13 0212 98.2 62 18 128/60 97 Room Air 07/12 2222 97.7 69 16 100/47 96 Room Air 07/12 2005 Room Air 07/12 1843 Room Air I&O 07/12 0800 07/12 1600 07/13 0000 Intake Total 600 Output Total 575 Balance 25 General Appearance Alert, Oriented X3, No acute distress HEENT Normal exam, Atraumatic, PERRLA, Moist mucous membranes Lungs - left sided basilar ronchi Cardiovascular Regular rate and rhythm, Normal S1 and S2, No murmurs, gallops, rubs Abdomen Soft, No tenderness, No masses, No hepatosplenomegaly Extremities No clubbing, Normal pulses, Strength = upper ext's, Strength = lower ext's Skin No Breakdown, No Significant Lesions Psych/Mental Status Mental status normal LAB Results Laboratory Tests 07/13 0543 Chemistry Plasma Sodium (136 - 145 mmol/L) 141 Plasma Potassium (3.5 - 5.1 mmol/L) 3.9 Plasma Chloride (98 - 107 mmol/L) 106 CO2 (Enzymatic) (21 - 32 mmol/L) 27 BUN (7 - 18 mg/dL) 18 Creatinine (0.6 - 1.3 mg/dL) 1.2 Est GFR ( Amer) (mL/min) >60 Est GFR (Non-Af Amer) (mL/min) >60 Glucose (70 - 110 mg/dL) 107 Plasma Calcium (8.5 - 10.1 mg/dL) 8.3 Plasma Magnesium (1.8 - 2.4 mg/dL) 2.0 Total Bilirubin (0.0 - 1.0 mg/dL) 1.0 AST (15 - 37 U/L) 44 ALT (12 - 78 U/L) 82 Alkaline Phosphatase (46 - 116 U/L) 49 Total Protein (6.4 - 8.2 g/dL) 6.7 Albumin (3.3 - 5.0 g/dL) 3.0 Hematology WBC (4.5 - 11.5 K/uL) 15.8 RBC (4.50 - 5.90 M/uL) 4.10 Hgb (13.5 - 17.5 gm/dL) 12.6 Hct (41.0 - 53.0 %) 36.9 MCV (80 - 100 fL) 90 MCH (26 - 34 pg) 31 RDW (11.6 - 14.8 %) 13.3 Neut % (Auto) (50 - 75 %) 81.8 Lymph % (Auto) (25 - 40 %) 11.4 [place] % (Auto) (3 - 14 %) 6.0 Eos % (Auto) (0 - 4 %) 0.6 Baso % (Auto) (0 - 2 %) 0.2 Plt Count, EDTA (150 - 400 K/uL) 140 PUBS MCHC (31 - 37 g/dL) 34 Assessment and Plan Problem List 1. Pneumonia Plan - pt has persistent white blood cell count and now productive cough - patietn has been afebrile - will c/w azithromycin and ceftriaxone - will obtain daily blood work 2. Hypertension Plan - will c/w lasix and metoprolol - no abnormal blood pressures noted
[2016-07-13 17:42] VITALS: BP 155/56
[2016-07-13 23:57] VITALS: BP 145/60
[2016-07-14 03:45] VITALS: BP 141/56
[2016-07-14 06:57] VITALS: BP 150/73
[2016-07-14] MEDS ORDERED: AZITHROMYCIN500 MG PO (10:24)
--- NOTE | 2016-07-14 10:25 | Provider's Discharge Care Plan ---
Problem, Goal, Plan Problem List 1. Pneumonia Instructions: - finish course of antibioitics 2. Hypertension Instructions: Take meds as directed, - avoid excessive salt intake
--- NOTE | 2016-07-14 10:25 | Discharge Summary ---
Discharge Summary Report Admit Date 07/12/16 Discharge Date 07/14/16 Admission Diagnosis pneumonia Discharge Diagnosis pneumonia Brief History Patient is a 75 year old male with a pmh of hypertension that is presenting with a one day history of fever and diaphoresis. Patient had been in his usual state of health until this morning when the patient had a sudden onset of diaphoresis and general malaise. Patient claims that there was no inciting incidence nor was there any preceding sore throat, cough, or rhinitis. Patient has had two family members that were recently ill, one with a sinus infection and one with an upper respiratory infection. Patient is otherwise stable with no other problems noted. Hospital Course Patient was admitted for pneumonia. Patient was started on two antimicrobial agents and proceeded to do well. However the patient on the second day of admission was seen to have a increase in the white blood cell count, and patient started to develop a sore throat and a productive cough. Patient on the third day of admission was seen to have improvement of symptoms and normal levels of infectious markers. Patient will be discharged home. Patient will follow up with his primary care provider at the [place]. Patient will complete his course of oral antibioitics. General Appearance Alert, Oriented X3, No acute distress Lungs Normal air movement Cardiovascular Normal S1, Normal S2, No murmurs, Gallops, Rubs Abdomen Soft, No tenderness, No hepatospenomegaly, No masses Skin No Breakdown, No Significant Lesions Psych/Mental Status Mood NL Lab/Imaging Laboratory Tests 07/14 0520 Chemistry Plasma Sodium (136 - 145 mmol/L) 142 Plasma Potassium (3.5 - 5.1 mmol/L) 3.6 Plasma Chloride (98 - 107 mmol/L) 105 CO2 (Enzymatic) (21 - 32 mmol/L) 24 BUN (7 - 18 mg/dL) 14 Creatinine (0.6 - 1.3 mg/dL) 1.0 Est GFR ( Amer) (mL/min) >60 Est GFR (Non-Af Amer) (mL/min) >60 Glucose (70 - 110 mg/dL) 104 Plasma Calcium (8.5 - 10.1 mg/dL) 8.1 Total Bilirubin (0.0 - 1.0 mg/dL) 1.0 AST (15 - 37 U/L) 29 ALT (12 - 78 U/L) 65 Alkaline Phosphatase (46 - 116 U/L) 47 Total Protein (6.4 - 8.2 g/dL) 6.3 Albumin (3.3 - 5.0 g/dL) 3.1 Hematology WBC (4.5 - 11.5 K/uL) 10.3 RBC (4.50 - 5.90 M/uL) 4.10 Hgb (13.5 - 17.5 gm/dL) 12.4 Hct (41.0 - 53.0 %) 37.2 MCV (80 - 100 fL) 91 MCH (26 - 34 pg) 30 RDW (11.6 - 14.8 %) 13.2 Neut % (Auto) (50 - 75 %) 70.9 Lymph % (Auto) (25 - 40 %) 17.4 [place] % (Auto) (3 - 14 %) 8.6 Eos % (Auto) (0 - 4 %) 2.9 Baso % (Auto) (0 - 2 %) 0.2 Plt Count, EDTA (150 - 400 K/uL) 133 PUBS MCHC (31 - 37 g/dL) 33 Discharge Instructions/Meds - take antibiotics as prescribed - follow up with your primary care provider
--- NOTE | 2016-07-14 10:25 | Provider's Discharge Care Plan ---
Problem, Goal, Plan Problem List 1. Pneumonia Instructions: - finish course of antibioitics 2. Hypertension Instructions: Take meds as directed, - avoid excessive salt intake
== END 2016-07-14 13:00 | disposition home or self-care (01) ==
LOC: ED SRH 12:20 → ACUTE2 SRH 14:52 → TRANS SRH 14:52 → ACUTE2 SRH 17:00
PROVIDERS: ADMIT Emergency Medicine
DX: J18.9 Pneumonia, unspecified organism (principal); R53.1 Weakness; R74.8 Abnormal levels of other serum enzymes
CPT/HCPCS: 29230; 29244; 29250; 29251; 29263; 85241; 90004; 90065; 90074; 90100; 90616; 91320; 92031; 92610; 92720; 93004; 93140; 95059